=== PATIENT | male | born 1940 | race Caucasian/White ===

== ENCOUNTER 2017-09-03 09:07 | Emergency (ER) | payer MEDICARE ==
[~2017-09-03] VITALS: Ht 170.2 cm; Wt 81.4 kg
[2017-09-03 09:26] VITALS: Ht 170.2 cm; Wt 81.4 kg
[2017-09-03 10:00] LABS: BASOPHILS 0.2 % (0-2); EOSINOPHILS 7.4 % (0-7); HEMATOCRIT 32.5 % (42.0-54.0); HEMOGLOBIN 10.9 g/dL (13.5-17.5); IMMATURE GRANULOCYTES 0.2 % (0-5); LYMPHOCYTES 25.4 % (15-50); MCH 32.3 pg (26.0-34.0); MCHC 33.5 g/dL (31.0-37.0); MCV 96.4 fL (80.0-100.0); MEAN PLATELET VOLUME 9.5 fL (7.4-10.4); NEUTROPHILS 55.8 % (40-80); PLATELET COUNT 147 10x3/uL (130-400); RBC 3.37 10x6/uL (4.20-6.10); RDW 12.7 % (11.5-14.5); WBC 4.5 10x3/uL (4.8-10.8)
[2017-09-03 10:29] LABS: ALBUMIN 3.8 g/dL (3.4-5.0); BILIRUBIN - TOTAL 0.24 mg/dL (0.2-1.3); CALCIUM 9.1 mg/dL (8.5-10.1); CARBON DIOXIDE 21.9 mmol/L (21.0-32.0); CREATININE - SERUM 1.9 mg/dL (0.6-1.3); PROTEIN - SERUM 7.4 g/dL (6.4-8.2)
[2017-09-03 10:32] LABS: ANION GAP 14.9 mmol/L (8-16); POTASSIUM - SERUM 5.8 mmol/L (3.5-5.1)
[2017-09-03 12:27] VITALS: BP 183/92
[2017-11-01] MEDS ORDERED: VITAMIN B-121000 MCG PO (10:22)
[2017-11-01] MEDS ORDERED: GLUCOPHAGE500 MG PO (10:23)
[2017-11-02 06:04] VITALS: Ht 170.2 cm; Wt 81.4 kg
== END 2017-09-03 12:20 | disposition home or self-care (01) ==
LOC: D.ER 09:07
PROVIDERS: Family Medicine
DX: E78.5 Hyperlipidemia, unspecified (principal); E11.9 Type 2 diabetes mellitus without complications; I10 Essential (primary) hypertension

== ENCOUNTER 2017-11-02 05:20 | Day surgery (SDC) | payer MEDICARE ==
[2017-11-01 11:10] LABS: HEMATOCRIT 30.9 % (42.0-54.0); HEMOGLOBIN 10.4 g/dL (13.5-17.5); MCH 31.8 pg (26.0-34.0); MCHC 33.7 g/dL (31.0-37.0); MCV 94.5 fL (80.0-100.0); MEAN PLATELET VOLUME 9.1 fL (7.4-10.4); RBC 3.27 10x6/uL (4.20-6.10); RDW 13.1 % (11.5-14.5); WBC 4.6 10x3/uL (4.8-10.8)
[~2017-11-02] VITALS: Ht 170.2 cm; Wt 82.6 kg
--- NOTE | ~2017-11-02 | OP ---
PATIENT NAME: Leslie GAMA MEDICAL RECORD: [id number] :42 LOCATION:[facility] ADMISSION DATE: SURGEON: RIN RAMIREZ DO DATE OF OPERATION: 11/02/2017 PROCEDURE PERFORMED: Left endoscopic carpal tunnel release. PREOPERATIVE DIAGNOSIS: Left carpal tunnel syndrome. POSTOPERATIVE DIAGNOSIS: Left carpal tunnel syndrome. INDICATIONS: Mr. Gama is a 76-year-old male who presented to my office a couple of weeks ago complaining of left and right hand numbness, left greater than right. He said the pain would wake him up at night and shake it, and tries to go back to sleep, but that wakes him up every night, and when he drives or talks on the cellphone his hand goes to sleep, first 3 fingers. He had a positive carpal tunnel compression test. I informed him that we could get a nerve conduction test to see how bad it is. He was not too concerned about that, he said he wanted it fixed. He did not want to have to wait to get the testing done as it could be about 3 to 4 weeks. I informed him that without doing that, we may not know the prognosis for his recovery, feeling back into the hand, but we could make the pain go away. He was okay with that and wanted to proceed forward. He is aware of the risks and benefits including damage to the median nerve, any sensory nerves, vessels and need for further surgery and infection. Once the patient was aware there was risks, he consented to the procedure. SURGEON: Rin Ramirez DO DESCRIPTION OF PROCEDURE: The patient was taken to the operative suite, laid in supine position. Left upper extremity was prepped and draped in sterile fashion with a tourniquet above the elbow under the drapes. Timeout was performed, everyone was in agreement of the correct side, site, patient and procedure. Two grams of Ancef were given to the patient. Once the antibiotic was in and timeout was performed, the Esmarch was used to exsanguinate the left upper extremity and inflated to 250 mmHg, was up for 11 minutes during the procedure. Incision was then marked just proximal to the wrist crease and then a 15 blade scalpel was used to cut the skin and then 2 Ragnells were used to bluntly dissect down to the carpal tunnel itself. Once the carpal tunnel was exposed, median nerve was exposed. The forearm fascia was released from distal to proximal in the incision site and then the dilators were used to enter the carpal tunnel and the sheath was entered into the carpal tunnel. Once the transverse carpal ligament was in good view with the camera, a probe and rasp were used to clean it off to ensure there was nothing through the ligament or around the ligament and the blade was entered into the protective sheath and raised up, and the transverse carpal ligament was transected and divided. Then the sheath and knife and the camera were removed. Then, under loupe magnification, direct visualization, the transverse carpal ligament was inspected and any remaining fibers were transected with a pair of scissors using a spreading technique and the tourniquet was then let down at 11 minutes. The area was injected with 0.25% Marcaine with epinephrine at approximately 8 mL around into the transverse carpal ligament area, into the palm and around the incision site. The wound was then closed with 5-0 Monocryl in a horizontal mattress fashion and an Adaptic, 4 x 4's, Kerlix, and a Coban was lightly placed on the hand. The patient was awakened and taken to recovery in stable OPERATIVE REPORT [id number] Leslie GAMA condition. BLOOD LOSS: Minimal. COMPLICATIONS: None. TRANSINT:[id number] Voice Confirmation ID: [id number] DOCUMENT ID: [id number] RIN RAMIREZ DO at 1238 CC: [id number] DICTATION DATE: 11/02/17 0759 INTERNAL MEDICINE SPECIALIST: 11/02/17 0912 [facility] 11/02/[address] [id number]
[~2017-11-02 05:20] MED LIST: GLUCOPHAGE500 MG PO; VITAMIN B-121000 MCG PO
[2017-11-02] MEDS ORDERED: TRADJENTA5 MG PO (06:02)
[2017-11-02] MEDS ORDERED: GABAPENTIN100 MG PO (06:03)
[2017-11-02] MEDS ORDERED: NORVASC10 MG PO (06:03)
[2017-11-02 06:04] VITALS: BP 158/83; Ht 170.2 cm; Wt 82.6 kg
[2017-11-02] MEDS ORDERED: HYDROCODON-ACE1 EAC7 PO (07:54)
[2017-11-02] MEDS ORDERED: DURICEF500 MG PO (07:54)
== END 2017-11-02 10:12 | disposition home or self-care (01) ==
LOC: D.OPS 05:20 → D.PAN 10:15
PROVIDERS: Anesthesiology
DX: G56.02 Carpal tunnel syndrome, left upper limb (principal); Z01.812 Encounter for preprocedural laboratory examination

== ENCOUNTER → 2018-04-17 09:19 | Outpatient (CLI) | payer MEDICARE ==
[2017-11-02 06:04] VITALS: BMI 28.5
[~2018-04-17 09:19] MED LIST changes: +DURICEF500 MG PO; +GABAPENTIN100 MG PO; +HYDROCODON-ACE1 EAC7 PO; +NORVASC10 MG PO; +TRADJENTA5 MG PO
== END | disposition home or self-care (01) ==
LOC: D.MRI 09:19
DX: R51 Headache (principal)